=== PATIENT | female | born 1970 | race Two or more races ===

== ENCOUNTER 2020-07-18 19:33 | Emergency (ER) | payer OTHER ==
[~2020-07-18] VITALS: Ht 167.6 cm; Wt 102.1 kg
[2020-07-18] MEDS ORDERED: IRON236 MG (19:52)
[2020-07-18] MEDS ORDERED: FORTAMET500 MG (19:52)
[2020-07-18] MEDS ORDERED: [UNRECOGNIZED DRUG - CODE] (19:53)
== END 2020-07-19 00:22 | disposition home or self-care (01) ==
LOC: ER 19:33
DX: S01.82XA Laceration with foreign body of other part of head, initial encounter (principal); S10.83XA Contusion of other specified part of neck, initial encounter; W18.09XA Striking against other object with subsequent fall, initial encounter; Y93.89 Activity, other specified; Y92.89 Other specified places as the place of occurrence of the external cause; Y99.8 Other external cause status